=== PATIENT | male | born 1990 | race Caucasian/White ===

== ENCOUNTER 2018-05-14 22:29 | Emergency (ER) | payer SELFPAY ==
--- NOTE | 2018-05-14 23:25 | EDM.PDOC ---
ED HPI GENERAL MEDICAL PROBLEM - General Chief Complaint: Eye Problems Stated Complaint: METAL IN RIGHT EYE Time Seen by Provider: 05/14/18 23:20 Source of Information: Reports: Patient History Limitations: Reports: No Limitations - History of Present Illness INITIAL COMMENTS - FREE TEXT/NARRATIVE: 28 yo male presents with c/o of FB in his R eye since yesterday. Is bothering him only a little. Is not certain about his tetanus status. Vision is not affected. Injury from grinding. Onset Date: 05/13/18 Duration: Day(s): (1), Constant Location: Reports: Face (R eye) Quality: Reports: Dull Severity: Mild Improves with: Reports: None Worsens with: Reports: None Context: Reports: Other (grinding incident.) Associated Symptoms: Reports: No Other Symptoms Treatments CALCULUS TUTOR: Reports: Other (see below) (none) Right Eye Pain Score (Numeric/FACES): 2 - Related Data Allergies Allergy/AdvReac Type Severity Reaction Status Date / Time No Known Allergies Allergy Verified 05/14/18 23:20 Home Meds: Home Meds NK [No Known Home Meds] 05/14/18 [History] ED ROS GENERAL - Review of Systems Review Of Systems: See Below Constitutional: Reports: No Symptoms HEENT: Reports: Eye Pain (R eye, mild). Denies: Eye Discharge Skin: Reports: No Symptoms Neurological: Reports: No Symptoms ED EXAM GENERAL W FULL EYE - Physical Exam Exam: See Below Exam Limited By: No Limitations General Appearance: Alert, WD/WN, No Apparent Distress Eye Exam: Right Eye: Conjunctival Injection (mild), Other (small black FB just lateral to the cornea.), Bilateral Eye: EOMI, Normal Inspection Eyelids: Bilateral: Normal Appearance Conjunctiva & Sclera: Right: Injected (minimal) Cornea Exam: Bilateral: Normal Appearance Extraocular Movements: Bilateral: Intact Pupils: Normal Accommodation Pupillary Size: Bilateral: 3 mm Ears: Normal External Exam, Hearing Grossly Normal Nose: Normal Inspection, Normal Mucosa, No Blood Throat/Mouth: Normal Inspection, Normal Voice, No Airway Compromise Head: Atraumatic, Normocephalic Neck: Normal Inspection Respiratory/Chest: No Respiratory Distress, No Accessory Muscle Use Neurological: Alert, Oriented, CN II-XII Intact, Normal Cognition, No Motor/ Sensory Deficits Psychiatric: Normal Affect, Normal Mood Skin Exam: Warm, Dry, Intact, Normal Color, No Rash ED EYE w/ Add Procedure - Eye Procedure Alcaine Drops Administered: Yes Eye FB Removal: Removal w/ Needle Cyclogel 2 Drops Administered: Right Eye Course - Vital Signs Last Recorded V/S: Last Vital Signs Temp 36.5 C 05/14/18 23:25 Pulse 72 05/14/18 23:25 Resp 14 05/14/18 23:25 BP 124/71 05/14/18 23:25 Pulse Ox 98 05/14/18 23:25 - Orders/Labs/Meds Orders: Active Orders 24 hr Category Date Time Status Vaccines to be Administered [RC] PER UNIT ROUTINE Care 05/14/18 23:27 Active Meds: Medications Discontinued Medications Generic Name Dose Route Start Last Admin Trade Name Diego PRN Reason Stop Dose Admin Diphtheria/Tetanus/Acell Pertussis 0.5 ml 05/14/18 23:26 05/14/18 23:34 Adacel IM 05/14/18 23:27 0.5 ml .ONCE ONE Administration Tetracaine HCl 1 ml 05/14/18 23:30 05/14/18 23:34 Tetracaine 0.5% Steri-Unit Dee EYERT 05/14/18 23:31 1 applic ASDIRECTED ONE Administration Departure - Departure Time of Disposition: 23:41 Disposition: Home, Self-Care 01 Condition: Good Clinical Impression: Eye foreign bodies Qualifiers: Encounter type: initial encounter Laterality: right Qualified Code(s): T15.91XA - Foreign body on external eye, part unspecified, right eye, initial encounter - Discharge Information Referrals: PCP,None [Primary Care Provider] - Forms: ED Department Discharge - My Orders Last 24 Hours: My Active Orders 05/14/18 23:27 Vaccines to be Administered [RC] PER UNIT ROUTINE - Assessment/Plan Last 24 Hours: My Active Orders 05/14/18 23:27 Vaccines to be Administered [RC] PER UNIT ROUTINE
[2018-05-14] MEDS ORDERED: Diphtheria,Pertussis(Acell),Tetanus Vaccine 0.5 ML SDV IM ONE (23:26)
[2018-05-14] MEDS ORDERED: Tetracaine HCl/PF 0.5% 4 ML Bottle EYERT ONE (23:30)
== END 2018-05-14 23:50 | disposition home or self-care (01) ==
LOC: JP.ED 22:29
DX: T15.81XA Foreign body in other and multiple parts of external eye, right eye, initial encounter (principal); Z23 Encounter for immunization
CPT/HCPCS: 65220; 90471; 90715; 99283; A9270

== ENCOUNTER 2021-03-06 18:05 | Emergency (ER) | payer SELFPAY ==
--- NOTE | 2021-03-06 18:42 | EDM.PDOC ---
ED HPI GENERAL MEDICAL PROBLEM - General Chief Complaint: Upper Extremity Injury/Pain Stated Complaint: right 4th digit finger is numb Time Seen by Provider: 03/06/21 18:27 Source of Information: Reports: Patient, RN Notes Reviewed History Limitations: Reports: No Limitations - History of Present Illness INITIAL COMMENTS - FREE TEXT/NARRATIVE: 30-year-old gentleman presents emergency department today with concern of discoloration of digit #4 on his left hand he states it was very intermittent it is now returned back to normal he did have an injury where he landed on the [place] surface near the ulnar distribution which may have contributed to this - Related Data Allergies Allergy/AdvReac Type Severity Reaction Status Date / Time No Known Allergies Allergy Verified 03/06/21 18:23 Home Meds: Home Meds NK [No Known Home Meds] 05/14/18 [History] Past Medical History - Past Health History Medical/Surgical History: Denies Medical/Surgical History Social & Family History - Tobacco Use Tobacco Use Status *Q: Current Every Day Tobacco User Years of Tobacco use: 10 Packs/Tins Daily: 1 - Caffeine Use Caffeine Use: Reports: Energy Drinks, Soda - Recreational Drug Use Recreational Drug Use: Yes Recreational Drug Type: Reports: Marijuana/Hashish Recreational Drug Use Frequency: Daily Review of Systems - Review of Systems Review Of Systems: See Below Skin: Reports: Change in Color ED EXAM, GENERAL - Physical Exam Exam: See Below Free Text/Narrative:: Examination left hand radial pulse +2 out on appreciate any discoloration full range of motion of all digits the ring finger may be slight change in temperature difficult to appreciate good cap refill sensation is intact Exam Limited By: No Limitations General Appearance: Alert, WD/WN, No Apparent Distress Course - Vital Signs Last Recorded V/S: Last Vital Signs Temp 97.2 F 03/06/21 18:25 Pulse 82 03/06/21 18:25 Resp 18 03/06/21 18:25 BP 174/108 H 03/06/21 18:25 Pulse Ox 97 03/06/21 18:25 Departure - Departure Time of Disposition: 18:44 Disposition: Home, Self-Care 01 Condition: Fair Clinical Impression: Ulnar nerve injury Qualifiers: Encounter type: initial encounter Location of peripheral nerve injury: hand Laterality: left Qualified Code(s): S64.02XA - Injury of ulnar nerve at wrist and hand level of left arm, initial encounter - Discharge Information Instructions: Ulnar Nerve Contusion Rehab-SportsMed, Crush Injury of the Hand, [id number], Ulnar Nerve Contusion Referrals: PCP,None [Primary Care Provider] - Additional Instructions: Continue with routine movement, please followup with your primary care provider in 3-5 days if not better, please call return to the emergency department with worsening of symptoms. Sepsis Event Note (ED) - Evaluation Sepsis Screening Result: No Definite Risk - Focused Exam Vital Signs: Vital Signs Temp Pulse Resp BP Pulse Ox 03/06/21 18:25 97.2 F 82 18 174/108 H 97 03/06/21 18:17 97.2 F 82 18 174/108 H 97 - Assessment/Plan Plan: Assessment Acuity = acute Site and laterality = discoloration digit #4 left hand Etiology = unknown Manifestations = none Location of injury = Home Lab values = none Plan This possibly could have been an ulnar nerve injury now with good resolution have him follow-up with his primary care in the next 3 to 5 days if not better This note was dictated using [employer] voice recognition software please call with any questions on syntax or grammar.
== END 2021-03-06 18:50 | disposition home or self-care (01) ==
LOC: JP.ED 18:05
DX: S64.02XA Injury of ulnar nerve at wrist and hand level of left arm, initial encounter (principal); Z72.0 Tobacco use; X58.XXXA Exposure to other specified factors, initial encounter
CPT/HCPCS: 99282; 99283

== ENCOUNTER 2023-07-08 03:15 | Emergency (ER) | payer MEDICAID ==
[2023-07-08] MEDS ORDERED: Amoxicillin/Clavulanate K 875-125 MG Tab PO ONE (03:36)
[2023-07-08] MEDS ORDERED: Acetaminophen/HYDROcodone 325-5 MG Tab PO ONE (03:36)
== END 2023-07-08 03:54 | disposition home or self-care (01) ==
LOC: JP.ED 03:15
DX: K04.7 Periapical abscess without sinus (principal); K02.9 Dental caries, unspecified; Z72.0 Tobacco use
CPT/HCPCS: 99282; A9270

== ENCOUNTER 2025-03-14 16:19 | Emergency (ER) | payer SELFPAY ==
[2025-03-14 17:33] LABS: LYME AB IgG Negative (Negative); LYME AB IgM Negative (Negative)
== END 2025-03-14 16:51 | disposition home or self-care (01) ==
LOC: JP.ED 16:19
DX: S00.86XA Insect bite (nonvenomous) of other part of head, initial encounter (principal); W57.XXXA Bitten or stung by nonvenomous insect and other nonvenomous arthropods, initial encounter
CPT/HCPCS: 36415; 86618; 99282